=== PATIENT | male | born 1955 | race Caucasian/White ===

== ENCOUNTER 2018-08-09 10:58 | Inpatient (IN) ==
[2018-08-09] MEDS ORDERED: *HR* Ticagrelor 90 MG TABLET PO ONE (11:04)
[2018-08-09] MEDS ORDERED: *HR* Heparin 5,000 UNIT/ML VIAL IVP ONE (11:07)
[2018-08-09] MEDS ORDERED: *HR* Heparin 5,000 UNIT/ML VIAL IVP PRN ×2 (11:07)
[2018-08-09] MEDS ORDERED: Heparin 25,000 UNIT/500 ML D5W 25,000 UNIT/500 ML BAG IVC SCH (11:15)
[2018-08-09] MEDS ORDERED: 0.9 % Sodium Chloride 1,000 ML ONE ×4 (11:15→16:34)
[2018-08-09 11:20] VITALS: BP 83/73
[2018-08-09 11:20] LABS: Basophils % 0.2 %; Eosinophils # 0.1 K/mcL (0.0-0.6); Eosinophils % 0.8 %; Hemoglobin 14.5 g/dL (12.9-16.9); Immature Granulocytes % 0.3 % (0-4); Lymphocytes # 2.2 K/mcL (0.6-4.6); Lymphocytes % 24.8 %; Mean Corpuscular Volume 94.2 fL (83.0-100.0); Mean Platelet Volume 9.5 fL (9.4-12.4); Monocytes # 0.7 K/mcL (0.0-1.3); Monocytes % 7.9 %; Neutrophils # 5.8 K/mcL (1.6-8.9); Platelet Count 248 K/mcL (140-400); Red Blood Count 4.67 M/mcL (4.19-5.50); Red Cell Distribution Width 13.3 % (11.5-14.5)
--- NOTE | 2018-08-09 11:25 | Emergency Department Note ---
Disposition Clinical Impression: STEMI (ST elevation myocardial infarction) Qualifiers: Involved coronary artery: unspecified coronary artery Qualified Code(s): I21.3 - ST elevation (STEMI) myocardial infarction of unspecified site Disposition: Admitted As Inpatient Condition: Critical Chest Pain HPI - General Chief Complaint: ED Chest Pain Stated Complaint: dizziness/CP Time Seen by Provider: 08/09/18 11:04 Source: patient, EMS Vital Signs Reviewed: Yes Nursing Notes Reviewed: Yes - History of Present Illness HPI Narrative: The patient is a 63-year-old otherwise healthy male who presents the emergency department via EMS with concern for STEMI. Patient has been feeling well as of late but today had an episode while he was walking at work and felt lightheaded and dizzy and took a seat. Denies hitting his head or losing consciousness. EMS was called where EKG was obtained which revealed ST elevations in leads 2, 3, and aVF. The patient denies any current symptoms other than lightheadedness. He denies any chest pain, back pain, shortness of breath, nausea, vomiting, diarrhea, rectal bleeding, hematuria, abdominal pain. He states he does not smoke or drink or use recreational drugs. He denies any past history of VT. He takes no daily medications including blood thinners or viagra or other PDE5 inhibitors. Severity scale (1-10): 0 - Related Data Allergies Allergy/AdvReac Type Severity Reaction Status Date / Time No Known Allergies Allergy Verified 08/09/18 11:07 All systems ED: reviewed and negative except as stated. Review of Systems: As Per HPI Constitutional: Denies: fever, chills, weakness, weight change Cardiovascular: Denies: chest pain, palpitations, dyspnea on exertion, edema, syncope Respiratory: Denies: cough, dyspnea, wheezes, hemoptysis, stridor Gastrointestinal: Denies: abdominal pain, nausea, vomiting, diarrhea, constipation, hematemesis, melena, hematochezia Genitourinary: Denies: urgency, dysuria, frequency, hematuria Musculoskeletal: Denies: back pain, neck pain, arthralgia, myalgia Neurological: Reports: other (Lightheadedness). Denies: headache, weakness, numbness, paresthesias, confusion Psychiatric: Denies: anxiety, depression Hematological/Lymphatic: Denies: easy bleeding, easy bruising Chest Pain PMH - Past Medical History Medical history: Reports: no medical history Psychiatric history: Reports: no psych history - Social History Smoking Status: Never smoker Alcohol use: Reports: none Drug use: Reports: none Physical Exam - General Limitations: no limitations General appearance: alert, in no apparent distress - Head Head exam: atraumatic, normocephalic - Eye Eye exam: Present: normal appearance. Absent: scleral icterus - ENT ENT exam: normal exam - Neck Neck exam: Present: normal inspection, full ROM, trachea midline. Absent: tenderness, meningismus - Chest Chest inspection: Present: normal inspection, symmetric chest wall rise - Respiratory Respiratory exam: Present: normal lung sounds bilaterally. Absent: respiratory distress, wheezes, stridor, accessory muscle use, prolonged expiratory phase - Cardiovascular Cardiovascular exam: Present: regular rate, normal rhythm, normal heart sounds. Absent: bradycardia, systolic murmur - Abdominal Exam Abdominal exam: Present: soft, Non-Tender. Absent: tenderness, distention, guarding, rebound, rigidity - Extremities Exam Extremities exam: Present: normal inspection. Absent: pedal edema - Neurological Exam Neurological exam: Present: alert, oriented X3 - Psychiatric Psychiatric exam: Present: normal affect, normal mood - Skin Skin exam: Present: warm, dry, intact. Absent: diaphoresis, mottled Course - Reevaluation(s) Reevaluation #1: Dr. Ocampo, drawer in stitch bonding machine discussed case with Dr. Tijerina, who will take the patient to the laboratory operations coordinator Time: 11:18 Vital Signs Temperature 0 F L 08/09/18 11:02 Pulse Rate 74 08/09/18 11:02 Respiratory Rate 22 08/09/18 11:02 Blood Pressure 92/76 08/09/18 11:02 O2 Sat by Pulse Oximetry 100 08/09/18 11:02 Temperature 0 F L 08/09/18 11:02 Pulse Rate 74 08/09/18 11:19 Respiratory Rate 16 08/09/18 11:19 Blood Pressure 83/73 08/09/18 11:19 O2 Sat by Pulse Oximetry 100 08/09/18 11:19 Oxygen Delivery Oxygen Delivery Room Air Chest Pain - MDM Narrative Medical decision making narrative: Patient with ST elevations in II, III, and aVF per EKG from EMS. STEMI alert initiated prior to arrival. Repeat EKG on presentation consistent with inferior VT. On arrival the patient's blood pressure is 66 with fluids running. Obtained another IV on the left arm to initiate 2 L fluid bolus. ASA 325 was g iven prior to arrival by EMS, no nitro given. Patient at this time is only complaining of lightheadedness. Given his atypical story there is concern for alternative causes of ST elevation including aortic dissection versus pericarditis vs electrolyte abnormality. The patient denies any current symptoms and has been in good health recently. Bedside ultrasound reveals possible motion artifact but no evidence of pericardial effusion. Portable chest x-ray appears within normal limits shows no mediastinal widening, pneumothorax or cardiomegaly. Continue with fluid bolus and initiated dopamine bolus as well. Brilinta given per cardiology recommendations. 4000U Heparin given. Patient taken to laboratory operations coordinator in stable but critical condition. All questions answered. - Medical Records Medical records reviewed: Yes I reviewed the patient's medical records. - Radiology Data Radiology results reviewed: Yes I reviewed the patient's radiology results. Chest X-Ray 08/09/18 11:05 IMPRESSION: No acute cardiopulmonary disease D/ / Jaquan Santiago MD / Jaquan Santiago MD Interpreting Provider: Jaquan Santiago MD - EKG Data EKG attestation: Yes I reviewed and interpreted this EKG. EKG results narrative: EKG from squad at [address]ations in 2, 3, and aVF with reciprocal changes in 1, aVL, V3 and V4. Repeat upon arrival at [address] elevations in 2, 3, and aVF. Cervical changes with ST depression in V2, V3, and V4. ST segment elevation in: II, III, aVF Heart Score - Score History: Slightly Suspicious EKG: Significant ST-Depression Age: 45-65 Risk Factors: No risk factors known
[2018-08-09 11:29] LABS: INR 1.2; Prothrombin Time 13.6 Seconds (9.4-12.1)
--- NOTE | 2018-08-09 11:36 | Cardiology History & Physical ---
Addendum entered and electronically signed by Claudia Ocampo MD 08/09/18 16:04: I have personally performed a face to face evaluation on this patient. I have reviewed and agree with the care plan. History and Exam by me shows: Pt presents with acute inferior-posterior STEMI. Will take emergently to cardiac catheterization lab for LHC and probable PCI. Further recommendations pending clinical course. Original Note: Date of Encounter: 08/09/18 Time of Encounter: 11:00 Assessment and Plan (1) STEMI (ST elevation myocardial infarction) Status: Acute Patient presented to the ED after syncopal episode this morning while walking. ECG shows acute inferior STEMI. Emergent LHC with possible PCI--pt. agreeable to proceed. ASA, brilinta load in ED; started on IV heparin gtt. Hypotensive in ED with SBP 60s, started on dopamine gtt. Will need ICU monitoring s/p LHC. Obtain TTE. Cardiac rehab. Further recommendations to follow Qualifiers: Involved coronary artery: unspecified coronary artery Qualified Code(s): I21.3 - ST elevation (STEMI) myocardial infarction of unspecified site History of Present Illness Chief complaint: Syncope HPI: Mr. Malhotra is a 63 year old male with no significant past medical history who presented to the ED this morning after syncopal episode while walking. ECG obtained by EMS demonstrated acute STEMI; patient was brought to [facility] for further evaluation and need for emergent LHC. Patient denies chest pain/discomfort; only complaint is dizziness. Denies previous medical history or hx of major surgical procedures. Reports was in normal state of health until symptoms started yesterday morning. Recommend emergent LHC with possible PCI. The patient was discussed and reviewed with Dr. Claudia Ocampo. Past Med Surg Social Fam HX - Past Medical History Source: unable to obtain (patient is critically ill) Medical history: no medical history Psychiatric history: no psych history - Past Surgical History Surgical History: non-contributory - Social History Smoking Status: Never smoker Smokeless Tobacco Status: No Alcohol use: none Drug use: none - Family History Mother Living Status: Unknown Hx Family Cardiac Disorders: Yes (CHF) Father History Unknown: Yes Medications and Allergies Allergy/AdvReac Type Severity Reaction Status Date / Time No Known Allergies Allergy Verified 08/09/18 11:07 ROS unobtainable: other (patient is critcially ill; as per HPI) All Systems Review: The remainder of the systems were reviewed and are negative Physical Examination Vital Signs, Last 4 Hours Temp Pulse Resp BP Pulse Ox 08/09/18 11:19 74 16 83/73 100 08/09/18 11:13 74 18 92/63 100 08/09/18 11:02 0 F L 74 22 92/76 100 General: Conversant, Other (appears critically ill; pale) HEENT: Atraumatic, Normocephaly Cardiac: Other (bradycardiac) Lungs: Other (unable to assess; required emergent C) Neuro: Alert and responsive, No focal deficits noted Abdomen: Soft Extremities: No Edema, Normal Pulses Results 08/09/18 11:11 Lab Results 08/09/18 11:11 WBC 8.9 Hgb 14.5 Hct 44.0 Plt Count 248 Active Medications Heparin Sodium (Porcine) (Heparin) 4,000 unit 60 unit/kg (4000 unit) IVP Q6HR PRN PRN Reason: SEE COMMENTS Stop: 02/08/19 11:08 Heparin Sodium (Porcine) (Heparin) 2,000 unit 30 unit/kg (2000 unit) IVP Q6H PRN PRN Reason: SEE COMMENTS Stop: 02/08/19 11:08 Dopamine HCl/Dextrose (Dopamine Premix 400mg/250ml) 400 mg in 250 mls @ 12.587 mls/hr IVC .[id number] [facility] Stop: 02/08/19 11:16 Last Admin: 08/09/18 11:17 Dose: 5 mcg/kg/min, 12.587 mls/hr Heparin Sodium/Dextrose (Heparin 25,000 Unit/500 Ml D5w) 25,000 unit in 500 mls @ 16.112 mls/hr IVC .Q24H [facility]; Protocol Stop: 02/08/19 11:16 - Imaging and Cardiology Echo: pending Cardiac cath: pending - EKG Interpretation EKG results cardiology: personally reviewed
[2018-08-09 11:44] LABS: BUN/Creatinine Ratio 26 (6-26); Blood Urea Nitrogen 24 mg/dL (8-23); Calcium 8.1 mg/dL (8.6-10.3); Carbon Dioxide 24 mEq/L (23-29); Chloride 105 mEq/L (98-107); Glucose 147 mg/dL (70-105); Osmolality,Calculated 295 (280-300); Potassium 4.1 mEq/L (3.5-5.1); Sodium 139 mEq/L (136-145); eGFR For Non-African Americans > 60 (> 60)
[2018-08-09] MEDS ORDERED: FentaNYL (PF) 1,000 MCG in 0.9 % Sodium Chloride 80 ML IVC SCH (12:00)
[2018-08-09 12:05] LABS: ABG Base Excess -9 mEq/L (-2 to 3); ABG HCO3 18 mEq/L (21-27); ABG Oxygen Saturation 100 % (95-98); ABG PCO2 43 mmHg (35-45); ABG PH 7.23 pH Units (7.32-7.45); ABG PO2 327 mmHg (85-104); ABG TCO2 19 mEq/L (20-26); Blood Gas PEEP 10 cm H2O
--- NOTE | 2018-08-09 12:11 | Emergency Department Note ---
Disposition Clinical Impression: STEMI (ST elevation myocardial infarction) Qualifiers: Involved coronary artery: unspecified coronary artery Qualified Code(s): I21.3 - ST elevation (STEMI) myocardial infarction of unspecified site Disposition: Admitted As Inpatient Condition: Serious Forms: ED Satisfaction Letter General Adult HPI - General Chief complaint: ED Chest Pain Stated complaint: dizziness/CP Time Seen by Provider: 08/09/18 11:04 Source: patient, EMS Limitations: no limitations Nursing Notes Reviewed: Yes Vital Signs Reviewed: Yes - History of Present Illness Pain Scale: 0 - Related Data Allergies Allergy/AdvReac Type Severity Reaction Status Date / Time No Known Allergies Allergy Verified 08/09/18 11:07 Constitutional: Denies: fever, chills, weakness, weight change Cardiovascular: Denies: chest pain, palpitations, dyspnea on exertion, edema, syncope Respiratory: Denies: cough, dyspnea, wheezes, hemoptysis, stridor Gastrointestinal: Denies: abdominal pain, nausea, vomiting, diarrhea, cons tipation, hematemesis, melena, hematochezia Genitourinary: Denies: urgency, dysuria, frequency, hematuria Musculoskeletal: Denies: back pain, neck pain, arthralgia, myalgia Neurological: Reports: other (Lightheadedness). Denies: headache, weakness, numbness, paresthesias, confusion Psychiatric: Denies: anxiety, depression Hematological/Lymphatic: Denies: easy bleeding, easy bruising Past Medical History - Past Medical History Medical history: Reports: no medical history Psychiatric history: Reports: no psych history - Social History Smoking Status: Never smoker Smokeless Tobacco Status: No Alcohol use: Reports: none Drug use: Reports: none Physical Exam - General Limitations: no limitations General appearance: alert, in no apparent distress Course Vital Signs Temperature 0 F L 08/09/18 11:02 Pulse Rate 74 08/09/18 11:02 Respiratory Rate 22 08/09/18 11:02 Blood Pressure 92/76 08/09/18 11:02 O2 Sat by Pulse Oximetry 100 08/09/18 11:02 Temperature 0 F L 08/09/18 11:02 Pulse Rate 74 08/09/18 11:19 Respiratory Rate 16 08/09/18 11:19 Blood Pressure 83/73 08/09/18 11:19 O2 Sat by Pulse Oximetry 100 08/09/18 11:19 Oxygen Delivery Oxygen Delivery Room Air Medical Decision Making - Lab Data Result diagrams: 08/09/18 11:11 Lab Results 08/09/18 Range/Units 11:11 WBC 8.9 (4.3-11.1) K/mcL RBC 4.67 (4.19-5.50) M/mcL Hgb 14.5 (12.9-16.9) g/dL Hct 44.0 (37.5-50.1) % MCV 94.2 (83.0-100.0) fL MCH 31.0 (28.0-33.3) pg MCHC 33.0 (31.6-35.5) g/dL RDW 13.3 (11.5-14.5) % Plt Count 248 (140-400) K/mcL MPV 9.5 (9.4-12.4) fL Immature Gran % 0.3 (0-4) % Seg Neutrophils % 66.0 % Lymphocytes % 24.8 % Monocytes % 7.9 % Eosinophils % 0.8 % Basophils % 0.2 % Neutrophils # 5.8 (1.6-8.9) K/mcL Lymphocytes # 2.2 (0.6-4.6) K/mcL Monocytes # 0.7 (0.0-1.3) K/mcL Eosinophils # 0.1 (0.0-0.6) K/mcL Basophils # 0.0 (0.0-0.2) K/mcL Attestation Statement - Attestation Attestation: Attestation: Resident Attestation: I examined this patient and my medical decision making was reviewed with the Resident Physician. I agree with the documented findings, disposition and treatment plan as described except to the extent set forth below. We independently had [id number] contact with the patient. Resident physician Dr. Shea and Dr. Grey. Transmitted EKG was available prior to squad arrival. [facility] was activated secondary to significant elevations in the inferior leads as well as associated anterior and laterally depression. Upon arrival the patient arrives in what appears to be no significant distress. He is resting in bed answering questions properly. He is complaining of dizziness and had 2 prior syncopal events. EMS report was taken. They state that he had a syncopal event and did not look well. EKG had been performed and noted to have changes concerning for CO and was transmitted. On arrival the patient did have hypotension that was treated with IV fluids. Blood sugar was found to be not hypoglycemic. The patient received a second liter of fluids. [facility] team did arrive to transport the patient. Interventional cardiology, Dr. Ocampo, did call to discuss the case and recommended [place] type. She had already seen the EKG and is coordinating [facility]. A third liter of fluids was started within the emergency department as well as dopamine. Berlinta was given prior to transfer. Family was not available within the emergency department. Staff has been notified to escort them to cardiopulmonary desk when they arrive so they can be updated with results in status. Patient column, flat affect, no acute distress, regular rate and rhythm, clear to auscultation bilaterally, abdomen soft nontender palpation, no significant peripheral pitting edema. Patient denies headache or abdominal pain or bloody bowel movements. Patient states that yesterday he felt completely fine. Patient felt completely fine prior to syncopal event. Ultrasound shows mildly decreased ejection fraction. Chest x-ray does not acute abnormality.
[2018-08-09 12:26] LABS: ABG Base Excess -12 mEq/L (-2 to 3); ABG HCO3 19 mEq/L (21-27); ABG Oxygen Saturation 81 % (95-98); ABG PCO2 67 mmHg (35-45); ABG PH 7.07 pH Units (7.32-7.45); ABG PO2 64 mmHg (85-104); ABG TCO2 21 mEq/L (20-26); Blood Gas Modality VC; Blood Gas PEEP 5 cm H2O; Blood Gas Respiration Rate 14; Blood Gas VT 500 cc
[2018-08-09] MEDS ORDERED: Heparin 1,000 UNITS/500 mL 0 ML ONE (13:06)
[2018-08-09] MEDS ORDERED: Amiodarone Premix 360 MG/200 ML BAG IVC ONE (13:13)
[2018-08-09] MEDS ORDERED: Nitroglycerin 1,000 MCG/10 ML VIAL IV ONE (13:15)
[2018-08-09] MEDS ORDERED: Sodium Bicarbonate 150 MEQ in D5% in Water 1,000 ML IVC SCH (13:15)
[2018-08-09] MEDS ORDERED: ISOVUE-370 200 ML INFUS..BTL ONE ×2 (13:20→15:45)
[2018-08-09] MEDS ORDERED: *HR* Phenylephrine 10 MG/ML VIAL ONE ×2 (13:25→15:18)
[2018-08-09] MEDS ORDERED: 0.9 % Sodium Chloride 250 ML ONE ×2 (13:25→15:18)
[2018-08-09 13:30] LABS: ABG Base Excess -11 mEq/L (-2 to 3); ABG HCO3 21 mEq/L (21-27); ABG Oxygen Saturation 80 % (95-98); ABG PCO2 81 mmHg (35-45); ABG PH 7.03 pH Units (7.32-7.45); ABG PO2 66 mmHg (85-104); ABG TCO2 24 mEq/L (20-26); Blood Gas PEEP 10 cm H2O; Blood Gas Respiration Rate 18; Blood Gas VT 500 cc
[2018-08-09] MEDS ORDERED: *HR* Heparin 10,000 UNIT/10 ML VIAL ONE ×2 (13:54→15:45)
[2018-08-09 14:19] LABS: ABG Base Excess -10 mEq/L (-2 to 3); ABG HCO3 22 mEq/L (21-27); ABG Oxygen Saturation 66 % (95-98); ABG PCO2 78 mmHg (35-45); ABG PH 7.05 pH Units (7.32-7.45); ABG PO2 50 mmHg (85-104); ABG TCO2 24 mEq/L (20-26); Blood Gas Modality ASSIST CONTROL; Blood Gas PEEP 10 cm H2O; Blood Gas Respiration Rate 20; Blood Gas VT 550 cc
[2018-08-09 15:08] LABS: ABG Base Excess -6 mEq/L (-2 to 3); ABG HCO3 24 mEq/L (21-27); ABG Oxygen Saturation 76 % (95-98); ABG PCO2 70 mmHg (35-45); ABG PH 7.15 pH Units (7.32-7.45); ABG PO2 54 mmHg (85-104); ABG TCO2 26 mEq/L (20-26); Blood Gas Modality ASSIST CONTROL; Blood Gas PEEP 10 cm H2O; Blood Gas Respiration Rate 20; Blood Gas VT 550 cc
--- NOTE | 2018-08-09 15:13 | Pulmonology Consult Note ---
<Alana Perla R - Last Filed: 08/09/18 17:02> Date of Encounter: 08/09/18 Time of Encounter: 15:13 Assessment and Plan (1) STEMI (ST elevation myocardial infarction) Current Visit: Yes Status: Acute Patient presented to the ED after syncopal episode this morning while walking. ECG shows acute inferior STEMI Initial trop in ED 4.40 ASA, brilinta load in ED; started on IV heparin gtt. Hypotensive in ED with SBP 60s, started on dopamine, neosynephrine gtt - DC'd Emergent LHC with PCI - complicated by pt coding during procedure x2, now on Impella [place] Uriel catheter in place, pt intubated Left femoral central line, left arterial sheath in place Currently on bicarb, amio and vasopressin ggt Fentanyl and versed for sedation Bicarb ggt switched to bicarb pushes Paralyzed with Vecuronium push and ggt Plan is to transfer to [place] as soon as pt is stable and there is an accepting physician Primary care as directed by Cardiology Pt began having bloody output in ETT, dove, and oozing from peripheral sites Stat CBC, Coags, T&S ordered Vecuronium, Levophed and Epi drips ordered for transfer to [place] Repeat ABGs remain acidotic but improving at 7.21 with CO2 56 and O2 58 - mixed respiratory and metabolic acidosis CXR shows new bilateral consolidations concerning for pulmonary hemorrhage Blood bank called for potential massive transfusion protocol Pt transported to [place] via [facility] for further care Qualifiers: Involved coronary artery: unspecified coronary artery Qualified Code(s): I21.3 - ST elevation (STEMI) myocardial infarction of unspecified site (2) Acidosis Current Visit: Yes Status: Acute Pt initially had pH of 7.23, which dropped as low as 7.03 Post intubaion this has improved to 7.15 Continue to trend while here and manage vent settings (3) DVT prophylaxis Current Visit: Yes Status: Acute On Heparin ggt History of Present Illness Consult date: 08/09/18 Requesting physician: Claudia Ocampo Reason for consult: other (intubated post-cath for STEMI) Chief complaint: syncope History of present illness: Mr. Malhotra is a 63 yo male with no PMHx who presented to the ED today after a syncopal episode. He had an episode of dizziness while walking today but has not had any chest pain, shortness of breath, or other cardiac symptoms in the past. No Hx of cardiac disease in himself and only known heart disease was CHF in his mother. EMS was called after his syncopal episode and during transport they performed an EKG that showed an inferior wall STEMI. The pt went to the lab clerk shortly after arrival o the ED and subsequently coded twice. The patient is now intubated and awaiting transfer to [place] as he is on Impella. 1525 - Upon arrival to the ICU the pt had bloody output from ETT, dove and NG tubes. Stat CBC, coags, and T&S ordered. Blood bank called for potential massive transfusion protocol. PT on Levophed and vasopressin for BP, epi ordered for transfer to [place]. Will switch bicarb drip to bicarb pushes. Pt also on amio, fentanyl and versed. Paralyzed with vecuronium drip. CXr ordered. Repeat ABGs q30min. 1638 - [facility] ETA 10 min 1652 - [facility] arrived, preparing for pt transfer at this time. Past Med Surg Social Fam HX - Past Medical History Medical history: no medical history Psychiatric history: no psych history - Past Surgical History Surgical History: non-contributory - Social History Smoking Status: Never smoker Smokeless Tobacco Status: No Alcohol use: none Drug use: none - Family History Mother Living Status: Unknown Hx Family Cardiac Disorders: Yes (CHF) Father History Unknown: Yes Medications and Allergies Allergy/AdvReac Type Severity Reaction Status Date / Time No Known Allergies Allergy Verified 08/09/18 11:07 ROS unobtainable: due to endotracheal tube All Systems: The remainder of the systems were reviewed and are negative Physical Examination Vital Signs: Vital Signs, Last 4 Hours Pulse Resp BP Pulse Ox 08/09/18 12:00 17 83 08/09/18 11:19 74 16 83/73 100 08/09/18 11:13 74 18 92/63 100 General appearance: asleep, other Eyes: nonicteric ENT: oropharynx dry Neck: supple Effort: normal Auscultation: bilateral: clear Cardiovascular: regular rate and rhythm Gastrointestinal: soft, non-tender, non-distended Integumentary: normal Extremities: no cyanosis, no edema unable to assess due to mental status, other (paralyzed) Ventilator Settings Ventilator Settings: Ventilator Settings, Last 8 Hours Ventilator Tidal Volume 550 Setting Ventilator Tidal Volume 550 Setting Ventilator Tidal Volume 500 Setting Ventilator Tidal Volume 500 Setting Ventilator Respiratory Rate 20 Setting Ventilator Respiratory Rate 20 Setting Ventilator Respiratory Rate 14 Setting Ventilator Respiratory Rate 14 Setting Actual Respiratory Rate 17 Positive End Expiratory 10 Pressure Positive End Expiratory 10 Pressure Positive End Expiratory 5 Pressure Positive End Expiratory 10 Pressure Positive End Expiratory 10 Pressure Peak Inspiratory Airway 17 Pressure Results - Laboratory Findings CBC and BMP: 08/09/18 15:37 08/09/18 11:11 ABG ABG pH 7.05 pH Units (7.32-7.45) L* 08/09/18 14:12 ABG pCO2 78 mmHg (35-45) H* 08/09/18 14:12 ABG pO2 50 mmHg (85-104) L* 08/09/18 14:12 ABG O2 Saturation 66 % (95-98) L 08/09/18 14:12 PT/INR, D-dimer PT 13.6 Seconds (9.4-12.1) H 08/09/18 11:11 Abnormal lab findings: Abnormal lab results PT 13.6 Seconds (9.4-12.1) H 08/09/18 11:11 Heparin Anti-Xa, Unfract 0.02 IU/mL (0.30-0.70) L 08/09/18 11:11 ABG pH 7.05 pH Units (7.32-7.45) L* 08/09/18 14:12 ABG pCO2 78 mmHg (35-45) H* 08/09/18 14:12 ABG pO2 50 mmHg (85-104) L* 08/09/18 14:12 ABG O2 Saturation 66 % (95-98) L 08/09/18 14:12 ABG Base Excess -10 mEq/L (-2 to 3) L 08/09/18 14:12 BUN 24 mg/dL (8-23) H 08/09/18 11:11 Glucose 147 mg/dL (70-105) H 08/09/18 11:11 Calcium 8.1 mg/dL (8.6-10.3) L 08/09/18 11:11 Troponin I 4.40 ng/mL (< 0.04) H* 08/09/18 11:11 - Clinical Findings Intake & Output: Intake & Output 1108/09/18 08/09/18 23:59 07:59 15:59 Weight 67.132 kg Consult Discharge Plan - Plan Referrals: NONE,PCP [Primary Care Provider] - <Maverick Rinaldi - Last Filed: 08/09/18 17:15> Date of Encounter: 08/09/18 All Systems: The remainder of the systems were reviewed and are negative Ventilator Settings Ventilator Settings: Ventilator Settings, Last 8 Hours Ventilator Tidal Volume 550 Setting Ventilator Tidal Volume 550 Setting Ventilator Tidal Volume 500 Setting Ventilator Tidal Volume 500 Setting Ventilator Respiratory Rate 20 Setting Ventilator Respiratory Rate 20 Setting Ventilator Respiratory Rate 14 Setting Ventilator Respiratory Rate 14 Setting Actual Respiratory Rate 17 Positive End Expiratory 10 Pressure Positive End Expiratory 10 Pressure Positive End Expiratory 5 Pressure Positive End Expiratory 10 Pressure Positive End Expiratory 10 Pressure Peak Inspiratory Airway 17 Pressure Results - Laboratory Findings CBC and BMP: 08/09/18 15:37 08/09/18 11:11 ABG ABG pH 7.21 pH Units (7.32-7.45) L 08/09/18 16:23 ABG pCO2 56 mmHg (35-45) H 08/09/18 16:23 ABG pO2 58 mmHg (85-104) L 08/09/18 16:23 ABG O2 Saturation 83 % (95-98) L 08/09/18 16:23 PT/INR, D-dimer PT 17.0 Seconds (9.4-12.1) H 08/09/18 15:37 Abnormal lab findings: Abnormal lab results WBC 17.1 K/mcL (4.3-11.1) H D 08/09/18 15:37 RBC 4.00 M/mcL (4.19-5.50) L 08/09/18 15:37 Hgb 12.7 g/dL (12.9-16.9) L D 08/09/18 15:37 Neutrophils # 12.7 K/mcL (1.6-8.9) H 08/09/18 15:37 Nucleated RBCs/100 WBC 0.2 /100 WBC (0) H 08/09/18 15:37 PT 17.0 Seconds (9.4-12.1) H 08/09/18 15:37 APTT 155.7 Seconds (26.0-36.0) H* D 08/09/18 15:37 Heparin Anti-Xa, Unfract 0.75 IU/mL (0.30-0.70) H 08/09/18 15:37 ABG pH 7.21 pH Units (7.32-7.45) L 08/09/18 16:23 ABG pCO2 56 mmHg (35-45) H 08/09/18 16:23 ABG pO2 58 mmHg (85-104) L 08/09/18 16:23 ABG O2 Saturation 83 % (95-98) L 08/09/18 16:23 ABG Base Excess -7 mEq/L (-2 to 3) L 08/09/18 16:23 BUN 24 mg/dL (8-23) H 08/09/18 11:11 Glucose 147 mg/dL (70-105) H 08/09/18 11:11 Calcium 8.1 mg/dL (8.6-10.3) L 08/09/18 11:11 Troponin I 4.40 ng/mL (< 0.04) H* 08/09/18 11:11 - Clinical Findings Intake & Output: Intake & Output 08/09/18 08/09/18 08/09/18 07:59 15:59 23:59 Weight 67.132 kg - Attending Attestation I examined this patient and my medical decision-making was reviewed with the Resident Physician. I agree with the documented findings, disposition and treatment plan as described except to the extent set forth below. We independently had [id number] contact with the patient I spent 58min of Critical Care time with this patient. It involved decision making of high complexity to assess, manipulate, and support vital organ system failure and/or to prevent further life threatening deterioration of the patient's condition. The time involved in the performance of separately reportable procedures was not counted toward critical care time. Patient seen and examined at bedside Labs, radiology, chart personally reviewed. Management was reviewed during multidisciplinary critical care rounds. DYE WORKER: Intubated and sedated suspected anoxic injury but extent cannot be confirmed at this time Pulm: Acute hypoxic hypercapnic respiratory failure with severe refractory hypoxemia intubated on present with a difficulty with gas exchange plan for deep sedation and paralysis size judiciously increased his PEEP has of underlying cardiac dysfunction we will attempt to lower tidal volume and increase respiratory rate to improve minute ventilation. Hypoxemia is a manifestation of suspected cardiogenic pulmonary edema and likely pulmonary hemorrhage from trauma. Cards: Status post cardiac arrest 2 with Cardiogenic shock from acute STEMI full impella support at this time patient being transitioned to Levophed for vasopressor support further management per cardiology likely will need transferred to referral center GI: Ppi prophylaxis given Nutrition: And by mouth for now Renal: Mixed acidosis likely component of lactic acidosis and STEVE.. UOP Monitored, Cont to Trend sCr and monitor Electrolytes. ID: No clear infectious etiology Heme/Onc: Patient showing evidence of hemorrhage and suspected early DIC H&H is stable from admission transfuse to keep hemoglobin around 9-10 with acute ischemia. Suspected pulmonary hemorrhage from trauma which fortunately has not persisted. Active bleeding is likely worsened by ongoing coagulopathy to support Impella Endo: Glucose Monitored Integ/MSK: Skin Care per routine ICU Nursing Protocol to prevent ulcers. Lines: All lines examined without evidence of infection : Dispo: Planned transfer patient [facility] CODE: Full code son updated at bedside. Prognosis poor.
[2018-08-09] MEDS ORDERED: Heparin 1,000 UNITS/500 mL 500 ML ONE ×2 (15:44→15:56)
[2018-08-09 15:45] LABS: Hematocrit 40.2 % (37.5-50.1)
[2018-08-09] MEDS ORDERED: Norepinephrine 4 MG in D5% in Water 250 ML IVC SCH (15:45)
[2018-08-09] MEDS ORDERED: EPINEPHrine 1 MG in D5% in Water 250 ML IVC SCH (15:45)
[2018-08-09 15:48] LABS: Hemoglobin 12.7 g/dL (12.9-16.9)
[2018-08-09 15:51] LABS: ABG Base Excess -6 mEq/L (-2 to 3); ABG HCO3 24 mEq/L (21-27); ABG Oxygen Saturation 82 % (95-98); ABG PCO2 66 mmHg (35-45); ABG PH 7.17 pH Units (7.32-7.45); ABG PO2 60 mmHg (85-104); ABG TCO2 26 mEq/L (20-26); Blood Gas Modality ASSIST CONTROL; Blood Gas PEEP 10 cm H2O; Blood Gas Respiration Rate 18; Blood Gas VT 550 cc
[2018-08-09] MEDS ORDERED: *HR* Vecuronium 10 MG VIAL ONE (15:52)
[2018-08-09 15:55] LABS: INR 1.5
[2018-08-09] MEDS ORDERED: Vecuronium 50 MG in 0.9 % Sodium Chloride 200 ML IVC SCH (16:00)
[2018-08-09] MEDS ORDERED: D5% in Water 250 ML ONE (16:14)
[2018-08-09 16:27] LABS: Heparin anti-factor XA UFH 0.75 IU/mL (0.30-0.70)
[2018-08-09 16:28] LABS: Activated Partial Thrombo Time 155.7 Seconds (26.0-36.0)
[2018-08-09 16:31] LABS: ABG Base Excess -7 mEq/L (-2 to 3); ABG HCO3 22 mEq/L (21-27); ABG Oxygen Saturation 83 % (95-98); ABG PCO2 56 mmHg (35-45); ABG PH 7.21 pH Units (7.32-7.45); ABG PO2 58 mmHg (85-104); ABG TCO2 24 mEq/L (20-26); Blood Gas Modality ASSIST CONTROL; Blood Gas PEEP 10 cm H2O; Blood Gas Respiration Rate 26; Blood Gas VT 520 cc
[2018-08-09 16:42] LABS: Basophils % 0.2 %; Eosinophils % 0.2 %; Immature Granulocytes % 2.7 % (0-4); Lymphocytes # 2.8 K/mcL (0.6-4.6); Lymphocytes % 16.6 %; Mean Corpuscular HGB Conc 32.2 g/dL (31.6-35.5); Mean Corpuscular Volume 99.5 fL (83.0-100.0); Monocytes % 6.1 %; Neutrophils # 12.7 K/mcL (1.6-8.9); Nucleated Red Blood Cells 0.2 /100 WBC (0); Platelet Count 310 K/mcL (140-400); Red Cell Distribution Width 13.6 % (11.5-14.5); Segmented Neutrophils % 74.2 %
--- NOTE | 2018-08-09 16:48 | Event Note ---
Date of Encounter: 08/09/18 Time of Encounter: 16:00 - Cardiology Event Note Pt critically ill on arrive to catheterization lab in cardiogenic shock with pressors. Cardiac catheterization revealed severe 3VCAD with severe diffuse disease of LAD, BLOCKER AND SEWER of Cx, and 100% acute thrombosis of dominant RCA. Pt intub ated for respiratory arrest and then subsequently developed PEA. Received multiple rounds of ACS. Impella catheter placed for hemodynamic support/cardiogenic shock. Had successful PCI of RCA with multiple TIM. Had successful PCI of LAD with multiple TIM. CVC placed for IV medication administration. [place]-Uriel catheter placed to monitor hemodynamics- difficulty oxygenating patient despite 100% FiO2, PEEP 10. Fluoroscopy performed to ensure proper ETT placement. Pt left catheterization lab critically ill on maximum support. Discussed all of above with patient's son- pt's son is aware pt is critically ill. Also discussed transfer to [facility] for higher level of care. Son agreeable.
[2018-08-09] MEDS ORDERED: Phenylephrine 10 MG in D5% in Water 250 ML IVC SCH (17:00)
[2018-08-09] MEDS ORDERED: *HR* Etomidate 40 MG/20 ML VIAL IVP ONE (17:59)
--- NOTE | 2018-08-10 10:32 | Invasive Diagnostic Lab Proc ---
Name: Newton Malhotra Date of Study: 08/09/2018 Date: 1955 Ht: 66.9in Medical Record#: [id number] Age: 63 Wt: 147.71lb Gender: Male BSA: 1.78 Order #: [id number] BMI: 23.18 Physicians Procedure Physician: Claudia Ocampo MD, [facility] Referring MD: Referring MD: Staff Name Position Time In Ira, Micah FRANCOIS Monitor 11:25 AM Nickie Whittaker RN Assignment Desk Editor 11:25 AM Adam, Isabel RT (R) Scrub 11:25 AM Indications Indication STEMI Procedures Performed Procedure PRQ CARD REVASC AZ 1 VSL R&L HRT ART/VENTRICLE ANGIO Insert VAD artery access CENTRAL LINE PLACEMENT Pre-Procedure Checklist Informed consent is complete signed and on chart. H&P is on chart. ID band is on and ID verified with patient. Patient NPO for procedure The procedure was described for the patient and questions were answered. Blood Pressure: 87/67 ECG is on chart. Rhythm: NSR Plan of Care Patient will tolerate the procedure without complications. Adequate level of comfort will be maintained. Hemodynamics will remain stable Patient will recover from procedure without complications. Respiratory function will be maintained. Cardiac rhythm will remain stable. Patient temperature will be maintained. Patient and/or family have verbalized understanding of the procedure. Patient Education Intravenous Access Time IV Size Location DC'd Fluid/Drip Rate Units RN 18g 1 1/4" Patent On Arrival Rt Nickie Llanes RN 18g 1 1/4" Patent On Arrival Lt Antecubital Nickie Whittaker RN Allergies No Known Allergies Vital Signs Time BP (mmHg) HR (bpm) O2 Sat. RR (bpm) LOC 11:28 AM / % 4 = Oriented but drowsy 11:28 AM / % 1 = Reflexes present/moves spontaneously 11:26 AM 118 / 107 82 99 % 12 11:27 AM 87 / 67 76 99 % 14 11:31 AM 75 / 34 81 99 % 17 11:33 AM 76 / 43 92 90 % 14 11:37 AM 141 / 101 51 82 % 37 11:39 AM 162 / 92 34 77 % 22 11:43 AM 76 / 45 70 100 % 21 01:33 PM 83 / 67 98 40 % 15 02:22 PM 73 / 48 103 40 % 19 02:25 PM 101 / 77 105 33 % 21 Procedural Medications Time Medication Dose Units Method Given By 11:28 AM Dopamine 10 mcg/kg/hr Intravenous 11:28 AM Oxygen 2 L/min nasal cannula Nickie Whittaker RN 11:30 AM Lidocaine 2% 12 ml Subcutaneous Claudia Ocampo MD, FAC 11:31 AM Zofran 4 mg Intravenous Nickie Whittaker RN 11:35 AM Neosynephrine 100 mcg Intravenous Nickie Whittaker RN 11:38 AM Atropine 0.5 mg Intravenous Micah Roth RN 11:40 AM Atropine 0.5 mg Intravenous Micah Roth RN 11:42 AM Neosynephrine 100 mg Intravenous Micah Roth RN 11:42 AM Etomidate 23 mg Intravenous Nickie Whittaker RN 11:44 AM Versed 2 mg Intravenous Nickie Whittaker RN 11:44 AM Fentanyl 50 mcg Intravenous Nickie Whittaker RN 11:47 AM Versed 2 mg Intravenous Nickie Whittaker RN 11:47 AM Fentanyl 50 mcg Intravenous Nickie Whittaker RN 11:48 AM Neosynephrine 100 mg Intravenous Micah Roth RN 11:50 AM Epinephrine 1 mg Intravenous Luke Fung RN 11:51 AM Neosynephrine 100 mcg/min Intravenous Nickie Whittaker RN 11:51 AM Dopamine 15 mcg/kg/min Intravenous Nickie Whittaker RN 12:00 PM Epinephrine 1 mg Intravenous Nickie Whittaker RN 12:00 PM Bicarb 1 Amp Intravenous Micah Roth RN 12:05 PM Heparin 5000 units Intravenous Nickie Whittaker RN 12:11 PM versed 2 mg/hr Intravenous Nickie Whittaker RN 12:14 PM Fentenyl 50 mcg/hr Intravenous Nickie Whittaker RN 12:19 PM Vasopressin 0.04 units/min Intravenous Nickie Whittaker RN 12:26 PM Bicarb 1 Amp Intravenous Micah Roth RN 12:28 PM Versed 2 mg Intravenous IraMicah perez RN 12:30 PM Nitroglycerin 200 mcg Intracoronary Claudia Ocampo MD, FACC 12:49 PM Nitroglycerin 200 mcg Intracoronary Claudia Ocampo MD, FACC 12:49 PM Dopamine 10 mg Intravenous Micah Roth RN 12:59 PM Dopamine 5 mcg/kg/min Intravenous Luke Fung RN 01:01 PM Versed 2 mg Intravenous IraMicah bradford RN 01:01 PM Fentanyl 50 mcg Intravenous Micah Roth RN 01:02 PM Fentanyl 75 mg/hr Intravenous Micah Roth RN 01:02 PM Versed 3 mg/hr Intravenous Micah Roth RN 01:03 PM Amiodarone 150 mg Intravenous Luke Fung RN 01:05 PM Versed 2 mg Intravenous Micah Roth RN 01:05 PM Fentanyl 50 mcg Intravenous Micah Roth RN 01:07 PM Dopamine Dc'd Micah Roth RN 01:14 PM Nitroglycerin 200 mcg Intracoronary Claudia Ocampo MD, FACC 01:17 PM Nitroglycerin 200 mcg Intracoronary Claudia Ocampo MD, FACC 01:20 PM Amiodarone 33.3 ml/hr Intravenous Micah Roth RN 01:27 PM Nitroglycerin 200 mcg Intracoronary Claudia Ocampo MD, FACC 01:47 PM Versed 2 mg Intravenous Micah Roth RN 01:47 PM Fentanyl 50 mcg Intravenous Micah Roth RN 01:50 PM Nitroglycerin 200 mcg Intracoronary Claudia Ocampo MD, FACC 01:54 PM Heparin 2000 units Intravenous Luke Fung RN 02:00 PM Nitroglycerin 200 mcg Intracoronary Claudia Ocampo MD, FACC 02:19 PM 0.9 w/ Sodium Bicarbonate 100 ml/hr Intravenous Luke Fung RN 01:00 PM Vasopressin 0.4 units/min Intravenous Micah Roth RN 11:45 AM Bicarb 1 Amp Intravenous Luke Fung RN ASA Classification: Emergent Procedure: ASA score is assumed Kylie Score Preprocedure Postprocedure Activity 1- Moves 2 extremities sustained head lift Activity Circulation 1- SBP+/= 20 - 50 points of pre-anesthetic level Circulation Consciousness 2- Awake and alert oriented x 3 Consciousness O2 Saturation 1- Needs O2 inhalation to maintain O2 saturation of 90% O2 Saturation Respiratory 1- Labored or limited respiration requires airway Respiratory Total Score 6 Total Score Contrast Agent: Isovue Diagnostic Contrast: 425 ml Total Contrast: 425 ml Fluoro Dose: 41554 mGy Activated Clotting Time Time Seconds to Clot 12:24 PM 378 12:42 PM 12:46 PM 270 01:36 PM 273 01:50 PM 223 Procedure Log Time Note Enter By 11:25 AM Pt arrived to laborer general 2 at 11:25 [place] 11:25 AM Ira, Micah RN Position: Monitor Time in: 11: [place] 11: AM Nickie Whittaker RN Position: Assignment Desk Editor Time in: : [place] 11:25 AM Isabel Medina RT (R) Position: Scrub Time in: : [place] 11:25 AM Patient charges- Angio tray pack, Navilyst 3mm J, Pulse Oximetry and ACIST tubing and transducer [place] 11: AM Physician arrived : [place] 11: AM Meet and genaro completed [place] 11: AM Sign in performed according to hospital policy. Informed consent was obtained. [place] 11: AM Procedure start : [place] 11: AM Vitals capture started with the following parameters, Patient=Adult, Interval=5 min, Initial Cxwvgvjv=827 mmHg, Deflation Rate=5 mmHg, Cuff placed on Right Arm 11: AM CathStat 11: AM HR=82 bpm, FFCE=159/107 mmhg, SpO2=99.0 %, Resp=12 B/min 11: AM NIBP STAT measurement started. 11:27 AM HR=76 bpm, NIBP=87/67 mmhg, SpO2=99.0 %, Resp=14 B/min, Comment=nsr 11: AM Patient arrived at 11:28 with Dopamine Intravenous drip @ 10 mcg/kg/hr [place] 11: AM Time: :28 Patient comfortable and pain free: Yes [place] 11: AM Time: 11:28LOC: 4 = Oriented but drowsy [place] 11: AM Time: 11:28 Oxygen on at 2 L/min per nasal cannula by Nickie Whittaker RN [place] 11:29 AM Clinical Presentation: STEMI or equivalent [place] 11:29 AM Time out was performed according to hospital policy. Conscious sedation and anesthesia was achieved (see medication log with in this report above) [place] 11:29 AM Critical cardiac patient with acute AZ was brought emergently to the cardiac labor and employment paralegal for immediate coronary angiography and intervention if clinically indicated. [place] 11:30 AM Time: 11:30 12 ml Lidocaine 2% to right groin Subcutaneous Given by Claudia Ocampo MD, [facility] [place] 11: AM Time: 11:31 Zofran 4 mg Intravenous Given by Nickie Whittaker RN [place] 11:31 AM HR=81 bpm, NIBP=75/34 mmhg, SpO2=99.0 %, Resp=17 B/min, Comment=nsr 11:32 AM 5Fr FL 4 catheter inserted over the wire DNC [place] 11:33 AM NIBP STAT measurement started. 11:33 AM HR=92 bpm, NIBP=76/43 mmhg, SpO2=90.0 %, Resp=14 B/min 11:34 AM LCA angiography performed in multiple views. [place] 11:35 AM Catheter removed [place] 11:36 AM Time: 11:35 Juan 100 mcg Intravenous Given by Nickie Whittaker RN [place] 11:37 AM HR=51 bpm, WPZB=353/101 mmhg, SpO2=82.0 %, Resp=37 B/min 11:37 AM 5Fr FR 4 catheter inserted over the wire DN [place] 11:37 AM RCA angiography performed in multiple views. [place] 11:38 AM Respiratory called [place] 11:38 AM NIBP STAT measurement started. 11:39 AM ECG Rythm: Sinus Jude dspellman 11:39 AM HR=34 bpm, QUUK=558/92 mmhg, SpO2=77.0 %, Resp=22 B/min, Comment=STEMI 11:40 AM Time: 11:38 Atropine 0.5 mg Intravenous Given by Micah Roth RN [place] 11:41 AM Time: 11:40 Atropine 0.5 mg Intravenous Given by Micah Roth RN [place] 11:42 AM Time: 11:42 Juan 100 mg Intravenous Given by Micah Roth RN [place] 11:42 AM Time: 11:42 Etomidate 23 mg Intravenous Given by Nickie Whittaker RN [place] 11:42 AM Respiratory at head of table to intubate. Pt unresponsive, collier, unable to maintain SAT. [place] 11:42 AM Recorded Pressure: Ao, HR=68, Condition=Condition 1 (Aorta) Ao 80/22/46 11:43 AM HR=70 bpm, NIBP=76/45 mmhg, SdB5=585 %, Resp=21 B/min 11:43 AM Time: 11:28LOC: 1 = Reflexes present/moves spontaneously [place] 11:44 AM Time: 11:28 Patient comfortable and pain free: Yes [place] 11:44 AM Time: 11:44 Versed 2 mg Intravenous Given by Nickie Whittaker RN [place] 11:44 AM Time: : Fentanyl 50 mcg Intravenous Given by Nickie Whittaker RN [place] 11:45 AM Time: 11:45 Bicarb 1 Amp Intravenous Given by Luke Fung RN [facility] 11:45 AM Paged community support associate operations officer [place] 11:46 AM pharmacy called per Aurora Ingram NP [place] 11:47 AM INTUBATED orally WITH # 7.5Tube Size [place] 11:47 AM ET TUBE PLACEMENT CONFIRMED BY =, AUSCULTATION [place] 11:47 AM ET tube measured 24 cm at lip line. [place] 11:47 AM Time: 11:47 Versed 2 mg Intravenous Given by Nickie Whittaker RN [place] 11:47 AM Time: 11:47 Fentanyl 50 mcg Intravenous Given by Nickie Whittaker RN [place] 11:48 AM Vitals capture stopped. 11:48 AM Time: 11:48 Juan 100 mg Intravenous Given by Micah Roth RN [place] 11:49 AM 5Fr Pigtail catheter inserted over the wire [facility] [place] 11:49 AM Catheter crossed the aortic valve and was selectively placed in the left ventricle. Pressures recorded on pullback for left heart catheterization. [place] 11:49 AM Bolus angiogram of left Ventricle complete: 8 ml/sec for a total of 24 mls [place] 11:49 AM Catheter removed [place] 11:49 AM CPR initiated 11:49 RASHI Roth RN [place] 11:50 AM Code procedures initiated 11:50 [facility] 11:50 AM ECG Rythm: PEA [place] 11:50 AM Time: 11:50 Epinephrine 1 mg Intravenous Given by Luke Fung RN [place] 11:51 AM Time: 11:51 Neosynephrine 100 mcg/min Intravenous Given by Nickie Whittaker RN Mayer pump [place] 11:51 AM Time: 11:51 Dopamine 15 mcg/kg/min Intravenous Given by Nickie Whittaker RN Mayer pump [place] 11:51 AM CPR continued 11:51 David Lazaro RT(R) [place] 11:52 AM Assiting respiration with ambu bag, with [id number] [place] 11:52 AM Perfusion in lab, Dr Gutierrez in lab for assistance with Impella placement [place] 11:52 AM Recorded Pressure: Ao, HR=82, Condition=Condition 1 (Aorta) Ao 117/81/93 11:53 AM pulse check [place] 11:53 AM ECG Rythm: Sinus Arrythmia [place] 11:54 AM An injection of 10 ml. of Isovue 370- 500ml was used for angiography of the descending aorta in the AP projection [place] 11:54 AM Preparing for impella placement right groin [place] 11:55 AM CPR initiated 11:55 Funmilayo Figueroa RT(R) dspellman 11:55 AM draw blood gases [place] 11:56 AM Vitals capture started with the following parameters, Patient=Adult, Interval=5 min, Initial Glkxpvxz=258 mmHg, Deflation Rate=5 mmHg, Cuff placed on Right Arm 11:57 AM Pulse check/ sinus rhythm dspellman 11:59 AM CPR initiated 11:58 Luke Fung RN [place] 11:59 AM Vitals capture stopped. 11:59 AM sheath exchanged, impella sheath inserted [place] 12:00 PM Time: 12:00 Epinephrine 1 mg Intravenous Given by Nickie Whittaker RN [place] 12:00 PM Time: 12:00 Bicarb 1 Amp Intravenous Given by Micah Roth RN [place] 12:01 PM CPR ended 12:01 [place] 12:01 PM Pulse/ rhythm check [place] 12:02 PM 5Fr Pigtail catheter inserted over the wire DN [place] 12:02 PM Recorded Pressure: Ao, CO=043, Condition=Condition 1 (Aorta) Ao 98/73/81 12:02 PM .018 Abiomed 260cm guide wire inserted through catheter. [place] 12:03 PM 5 Fr pigtail Catheter removed [place] 12:04 PM Recorded Pressure: Ao, HR=92, Condition=Condition 1 (Aorta) Ao 94/66/75 12:05 PM Impella Catheter inserted over .018 wire. [id number]. *ACC* catheter inserted 11 [place] 12:05 PM Time: 12:05 Heparin 5000 units Intravenous Given by Nickie Whittaker RN [place] 12:06 PM blood gas results: pH 7.22, pCO2 42.5, pO2 327, hCO3 17.8 [place] 12:06 PM Impella Pump started in auto. Janice from Perfusion, Birgit from Impella present in room [place] 12:08 PM Access obtained by percutaneous puncture. 6Fr 10cm Terumo [place] sheath placed in left Femoral artery. [id number] [place] 12:09 PM PCI Status Emergency [place] 12:09 PM PCI lesion in Mid RCA. Pre Stenosis: 99 Pre CHRISTINA Flow: 1: Slow Penetration without Perfusion [place] 12:10 PM 6Fr JR 4 [place] Bright-Tip guide catheter was used to cannulate the PCI vessel successfully. reused? No [place] 12:10 PM .014 Prowater 190cm guide wire across target lesion- successful. reused? No [place] 12:10 PM Inflation device was opened. [place] 12:11 PM Time: 12:11 versed 2 mg/hr Intravenous Given by Nickie Whittaker RN Mayer pump [place] 12:14 PM Time: 11:59 Patient comfortable and pain free: Yes [place] 12:15 PM Time: 12:14 Fentenyl 50 mcg/hr Intravenous Given by Nickie Whittaker RN Mayer pump [place] 12:15 PM 2.0 mm x 14 mm Emerge Monorail balloon across target lesion- successful. reused? No [place] 12:15 PM Balloon inflated @ 8 lyn for 20 seconds [place] 12:16 PM Balloon inflated @ 10 lyn for 15 seconds [place] 12:16 PM Balloon inflated @ 10 lyn for 20 seconds [place] 12:17 PM Reperfusion of the RCA [place] 12:18 PM Balloon inflated @ 8 lyn for 15 seconds proximal RCA [place] 12:19 PM Time: 12:19 Vasopressin 0.04 units/min Intravenous Given by Nickie Whittaker RN Mayer pump [place] 12:20 PM 2.25mm x 38mm Synergy drug-eluting stent across target lesion- successful Lot #[id number] [place] 12:22 PM Stent deployed @ 12 lyn for 30 seconds [place] 12:23 PM Stent delivery system removed intact. [place] 12:24 PM Blood gases pH 7.06, CO2 67, pO2 64.3, HCO3 19.2, O2 SAT 81% dspellman 12:24 PM 2.25mm x 32mm Synergy drug-eluting stent across target lesion- successful Lot #[id number] [place] 12:24 PM At 12:24 the ACT was 378 seconds. [place] 12:25 PM Stent deployed @ 12 lyn for 30 seconds [place] 12:26 PM Stent balloon reinflated @ 14 lyn for 30 seconds [place] 12:26 PM Stent delivery system removed intact. [place] 12:27 PM Time: 12:26 Bicarb 1 Amp Intravenous Given by Micah Roth RN [place] 12:27 PM 2.25mm x 32mm Synergy drug-eluting stent across target lesion- successful Lot #[id number] [place] 12:28 PM Time: 12:28 Versed 2 mg Intravenous Given by Micah Roth RN [place] 12:28 PM Stent deployed @ 18 lyn for 20 seconds [place] 12:29 PM Stent balloon reinflated @ 18 lyn for 10 seconds [place] 12:29 PM Stent delivery system removed intact. [place] 12:30 PM Recorded Pressure: Ao, EX=889, Condition=Condition 1 (Aorta) Ao 71/53/61 12:30 PM Time: 12:30 Nitroglycerin 200 mcg Intracoronary Given by Claudia Ocampo MD, [facility] [place] 12:33 PM 2.5mm x 12mm Synergy drug-eluting stent across target lesion- successful Lot #[id number] [place] 12:37 PM ACT drawn [place] 12:39 PM Stent deployed @ 12 lyn for 20 seconds [place] 12:39 PM Stent balloon reinflated @ 1/8 lyn for 15 seconds [place] 12:40 PM Stent delivery system removed intact. [place] 12:42 PM At 12:42 the ACT was >400 seconds. [place] 12:43 PM 2.75 mm x 20mm NC Emerge balloon across target lesion- successful. reused? No [place] 12:43 PM Repeat ACT drawn [place] 12:44 PM Time: 12:29 Patient comfortable and pain free: Yes [place] 12:44 PM Balloon inflated @ 20 lyn for 15 seconds [place] 12:45 PM Balloon inflated @ 20 lyn for 15 seconds [place] 12:45 PM Balloon inflated @ 20 lyn for 15 seconds [place] 12:45 PM Balloon inflated @ 20 lyn for 15 seconds [place] 12:46 PM Balloon inflated @ 20 lyn for 15 seconds [place] 12:46 PM Balloon inflated @ 20 lyn for 15 seconds [place] 12:46 PM At 12:46 the ACT was 270 seconds. [place] 12:47 PM Balloon inflated @ 20 lyn for 15 seconds [place] 12:47 PM Balloon inflated @ 20 lyn for 15 seconds [place] 12:48 PM Balloon inflated @ 20 lyn for 15 seconds [place] 12:49 PM Balloon catheter removed intact. [place] 12:49 PM Time: 12:49 Nitroglycerin 200 mcg Intracoronary Given by Claudia Ocampo MD, FAC [place] 12:50 PM Time: 12:49 Dopamine 10 mcg/kg/min Intravenous Given by Micah Roth RN Mayer pump [place] 12:50 PM Guide wire removed intact. [place] 12:50 PM Guide catheter removed intact. [place] 12:51 PM 6Fr XB LAD 3.5 [place] Bright-Tip guide catheter was used to cannulate the PCI vessel successfully. reused? No [place] 12:52 PM PCI lesion in Proximal LAD. Pre Stenosis: 99 Pre CHRISTINA Flow: 1: Slow Penetration without Perfusion [place] 12:52 PM Recorded Pressure: Ao, SO=153, Condition=Condition 1 (Aorta) Ao 78/57/66 12:53 PM .014 Prowater 190cm guide wire across target lesion- successful. reused? No [place] 12:58 PM Access obtained by percutaneous puncture. 7Fr 16cm Arrow Central Line 3 Lumen sheath placed in left Femoral vein. [id number] [place] 12:59 PM Time: 12:44 Patient comfortable and pain free: Yes [place] 12:59 PM Time: 12:59 Dopamine 5 mcg/kg/min Intravenous Given by Luke Fung RN Mayer pump [place] 01:00 PM Time: 13:00 Vasopressin 0.4 units/min Intravenous Given by Micah Roth RN Mayer pump dspell 01:00 PM Central line placed, flushed [place] 01:01 PM Time: 13:01 Versed 2 mg Intravenous Given by Micah Roth RN [place] 01:02 PM Time: 13:01 Fentanyl 50 mcg Intravenous Given by Micah Roth RN [place] 01:02 PM Time: 13:02 Fentanyl 75 mg/hr Intravenous Given by Micah Roth RN Mayer pump [place] 01:03 PM Time: 13:02 Versed 3 mg/hr Intravenous Given by Micah Roth RN Mayer pump [place] 01:03 PM Time: 13:03 Amiodarone 150 mg Bolus/10 min Intravenous Given by Luke Fung RN Mayer pump [place] 01:05 PM Time: 13:05 Versed 2 mg Intravenous Given by Micah Roth RN [place] 01:05 PM Time: 13:05 Fentanyl 50 mcg Intravenous Given by Micah Roth RN [place] 01:06 PM Defibrillated at 200 Joules joules [place] 01:06 PM ECG Rythm: Ventricular Tach-Sustained [place] 01:07 PM Blood Gases: pH 7.03, pO2 66, pCO2 81, HCO3 21, O2 SAT 80% dspellman 01:07 PM Recorded ECG: XD=091 Condition=Condition 1 01:07 PM Time: 13:07 Dopamine dc'd mg Given by Ira, Micah RN Mayer pump [place] 01:09 PM 1.5 mm x 20 mm Emerge Monorail balloon across target lesion- successful. reused? No [place] 01:09 PM Balloon inflated @ 10 lyn for 20 seconds [place] 01:10 PM Balloon inflated @ 10 lyn for 20 seconds [place] 01:11 PM Recorded ECG: VZ=523 Condition=Condition 1 01:11 PM Balloon inflated @ 10 yln for 20 seconds [place] 01:12 PM Balloon inflated @ 10 lyn for 20 seconds [place] 01:13 PM Balloon catheter removed intact. [place] 01:14 PM Time: 12:59 Patient comfortable and pain free: Yes [place] 01:15 PM Time: 13:14 Nitroglycerin 200 mcg Intracoronary Given by Claudia Ocampo MD, [facility] [place] 01:15 PM Vitals capture started with the following parameters, Patient=Adult, Interval=5 min, Initial Rzfppraz=318 mmHg, Deflation Rate=5 mmHg, Cuff placed on Right Arm 01:17 PM Vitals capture stopped. 01:18 PM Time: 13:17 Nitroglycerin 200 mcg Intracoronary Given by Claudia Ocampo MD, [facility] [place] 01:20 PM Time: 13:20 Amiodarone 33.3 ml/hr Intravenous Given by Micah Roth RN Mayer pump [place] 01:24 PM 1.5 x 20 mm balloon inserted over the wire to the Dist LAD [place] 01:24 PM Vitals capture started with the following parameters, Patient=Adult, Interval=5 min, Initial Apfxlujd=293 mmHg, Deflation Rate=5 mmHg, Cuff placed on Right Arm 01:25 PM Balloon inflated @ 14 lyn for 20 seconds [place] 01:26 PM Balloon inflated @ 14 lyn for 20 seconds [place] 01: PM BP Impella 82/61. BP low, refer to Impella notes and Respiratory notes for vital signs. [place] 01:26 PM Balloon inflated @ 14 lyn for 20 seconds [place] :27 PM Balloon inflated @ 14 lyn for 20 seconds [place] 01: PM Vitals capture stopped. 01:27 PM Balloon catheter removed intact. [place] 01:28 PM Time: 13:27 Nitroglycerin 200 mcg Intracoronary Given by Claudia Ocampo MD, [facility] [place] 01:29 PM Time: 13:14 Patient comfortable and pain free: Yes [place] 01:31 PM 2.25mm x 32mm Synergy drug-eluting stent across target lesion- successful Lot #[id number] [place] 01:31 PM Vitals capture started with the following parameters, Patient=Adult, Interval=5 min, Initial Stkidsyj=906 mmHg, Deflation Rate=5 mmHg, Cuff placed on Right Arm 01:32 PM Stent removed intact/undeployed [place] 01:32 PM 2.0 mm x 15 mm Emerge Monorail balloon across target lesion- successful. reused? No [place] 01:33 PM HR=98 bpm, NIBP=83/67 mmhg, SpO2=40 %, Resp=15 B/min 01:34 PM [ Start or Stop Vital ] 01:35 PM Balloon inflated @ 6 lyn for 10 seconds [place] 01:35 PM Balloon inflated @ 8 lyn for 18 seconds [place] 01:36 PM Balloon inflated @ 8 lyn for 10 seconds [place] 01:36 PM Balloon inflated @ 8 lyn for 11 seconds [place] 01:36 PM Balloon catheter removed intact. [place] 01:36 PM At 13:36 the ACT was 273 seconds. [place] 01:37 PM 2.25 x 32 mm Synergy drug eluting stent inserted over the wire to the proximal LAD [place] 01:38 PM Vitals capture stopped. 01:38 PM Stent removed intact. [place] 01:38 PM Vitals capture started with the following parameters, Patient=Adult, Interval=5 min, Initial Ifncyhaw=033 mmHg, Deflation Rate=5 mmHg, Cuff placed on Right Arm 01:39 PM 6Fr Guidezilla advanced [place] 01:39 PM 2.25 x 32 mm stent advanced to the LAD lesion [place] 01:41 PM Vitals capture stopped. 01:44 PM Time: 13:29 Patient comfortable and pain free: Yes [place] 01:45 PM Vitals capture started with the following parameters, Patient=Adult, Interval=5 min, Initial Cbvklnfb=760 mmHg, Deflation Rate=5 mmHg, Cuff placed on Right Arm 01:46 PM Stent deployed @ 11 lyn for 30 seconds [place] 01:47 PM Stent balloon reinflated @ 12 lyn for 15 seconds [place] 01:47 PM Time: 13:47 Versed 2 mg Intravenous Given by Micah Roth RN [place] 01:47 PM Time: 13:47 Fentanyl 50 mcg Intravenous Given by Micah Roth RN [place] 01:48 PM Vitals capture stopped. 01:48 PM BP 91/70 on Impella [place] 01:48 PM NIBP STAT measurement started. 01:49 PM Stent delivery system removed intact. [place] 01:49 PM ACT drawn [place] 01:50 PM At 13:50 the ACT was 223 seconds. [place] 01:50 PM Time: 13:50 Nitroglycerin 200 mcg Intracoronary Given by Claudia Ocampo MD, [facility] [place] 01:50 PM Vitals capture stopped. 01:51 PM NIBP STAT measurement started. 01:52 PM 2.25mm x 20mm Synergy drug-eluting stent across target lesion- successful Lot #[id number] [place] 01:54 PM Vitals capture stopped. 01:54 PM Time: 13:54 Heparin 2000 units Intravenous Given by Luke Fung RN [place] 01:55 PM Stent deployed @ 12 lyn for 30 seconds [place] 01:56 PM Stent balloon reinflated @ 18 lyn for 20 seconds [place] 01:57 PM Stent delivery system removed intact. [place] 01:58 PM 2.5 mm x 12mm NC Emerge balloon across target lesion- successful. reused? No [place] 01:58 PM AO pressure 81/70 [place] 01:58 PM Recorded Pressure: Ao, HR=98, Condition=Condition 1 (Aorta) Ao 86/81/84 01:59 PM Balloon inflated @ 20 lyn for 12 seconds [place] 01:59 PM Balloon inflated @ 20 lyn for 15 seconds [place] 01:59 PM Balloon inflated @ 20 lyn for 10 seconds [place] 02:00 PM Balloon inflated @ 20 lyn for 10 seconds [place] 02:00 PM Balloon catheter removed intact. [place] 02:01 PM Time: 14:00 Nitroglycerin 200 mcg Intracoronary Given by Claudia Ocampo MD, [facility] [place] 02:02 PM Balloon catheter removed intact. [place] 02:02 PM Guide catheter removed intact. [place] 02:03 PM Bolus angiogram of left Femoral complete: 4 ml/sec for a total of 7 mls cedwards 02:03 PM NIBP STAT measurement started. 02:04 PM Suturing central line left groin cedwards 02:06 PM Vitals capture stopped. 02:07 PM Impella placement adjusted under supervision of the Impella Rep cedwards 02:09 PM Blood gases drawn cedwards 02:12 PM Blood Gases: pH 7.05, pCO2 78, pO2 50,HCO3 22, O2 SAT 66% [email or web address] 02:13 PM Impella sheath peeled away, catheter secured. cedwards 02:16 PM ET tube placement verified with fluoro. cedwards 02:17 PM Ventilator settings Rate 20, TV 550, Peep10, FIO2 100 cedwards 02:20 PM Vitals capture started with the following parameters, Patient=Adult, Interval=5 min, Initial Winakczr=657 mmHg, Deflation Rate=5 mmHg, Cuff placed on Right Arm 02:20 PM Time: 14:19 0.9 w/ Sodium Bicarbonate 100 ml/hr Intravenous Given by Luke Fung RN Mayer pump cedwards 02:22 PM OM=186 bpm, NIBP=73/48 mmhg, SpO2=40.0 %, Resp=19 B/min 02:23 PM BP Impella 73/48 cedwards 02:23 PM NIBP STAT measurement started. 02:24 PM Access obtained by percutaneous puncture. 7Fr 11cm Cordis Vannesa sheath placed in right Femoral vein. [id number] cedwards 02:25 PM Stat Echo ordered cedwards 02:25 PM PH=969 bpm, DUDD=507/77 mmhg, SpO2=33.0 %, Resp=21 B/min 02:25 PM 7 F Fung [employer] [place] 'S' tip inserted through venous sheath cedwards 02:26 PM Pressure channel 1 zeroed. 02:26 PM ACT 293 cedwards 02:26 PM Pressure channel 1 zeroed. 02:26 PM Recorded Pressure: RA, YH=953, Condition=Condition 1 (Right Atrium) RA 1816/15 02:27 PM Recorded Pressure: RA, HR=063, Condition=Condition 1 (Right Atrium) RA 171615 02:28 PM Saturation: Site=IVC (Inferior Vena Cava) , Condition=Condition 1. Used in calculation. 02:30 PM .014 ChoICE PT Extra Support 182cm guide wire across target lesion- successful. reused? No cedwards 02:31 PM Recorded Pressure: RV, KI=782, Condition=Condition 1 (Right Ventricle) RV 14//13 02:32 PM Vitals capture stopped. 02:32 PM Recorded Pressure: MPA, LE=675, Condition=Condition 1 (Main Pulmonary Artery) MPA 44/28/36 02:33 PM Recorded Pressure: PCW, RO=193, Condition=Condition 1 (Pulmonary Capillary Wedge) PCW 39/34/31 02:33 PM Recorded Pressure: RV, CR=093, Condition=Condition 1 (Right Ventricle) RV 51 02:34 PM Recorded Pressure: RA, II=838, Condition=Condition 1 (Right Atrium) RA 02:34 PM Recorded Pressure: RA, HL=615, Condition=Condition 1 (Right Atrium) RA 02:36 PM Recorded Pressure: MPA, WU=611, Condition=Condition 1 (Main Pulmonary Artery) MPA 47/37 02:37 PM Thermo CO: CO=3.3 l/m, JG=346 bpm, Condition=Condition 1. Used in calculation. Equipment: Description and Size=SWAN 7FR, Type=Bath Probe, CC=0.578 Injectant: Temp=19.0 - 22.0 Celsius, Volume=10.0 ml 02:37 PM Thermo CO: CO=2.9 l/m, CL=457 bpm, Condition=Condition 1. Used in calculation. Equipment: Description and Size=SWAN 7FR, Type=Bath Probe, CC=0.578 Injectant: Temp=19.0 - 22.0 Celsius, Volume=10.0 ml 02:38 PM Thermo CO: CO=3.5 l/m, TF=397 bpm, Condition=Condition 1. Used in calculation. Equipment: Description and Size=SWAN 7FR, Type=Bath Probe, CC=0.578 Injectant: Temp=19.0 - 22.0 Celsius, Volume=10.0 ml 02:38 PM Thermo CO: CO=3.8 l/m, MS=939 bpm, Condition=Condition 1. Used in calculation. Equipment: Description and Size=SWAN 7FR, Type=Bath Probe, CC=0.578 Injectant: Temp=19.0 - 22.0 Celsius, Volume=10.0 ml 02:39 PM Thermo CO: CO=3.3 l/m, DB=544 bpm, Condition=Condition 1. Used in calculation. Equipment: Description and Size=SWAN 7FR, Type=Bath Probe, CC=0.578 Injectant: Temp=19.0 - 22.0 Celsius, Volume=10.0 ml 02:40 PM Saturation: Site=HRA (Right Atrium) , O2=34.1 %, Condition=Condition 1. Used in calculation. 02:42 PM Saturation: Site=IVC (Inferior Vena Cava) , O2=30.3 %, Hgb=14.5 gm/dl, Condition=Condition 1. Used in calculation. 02:42 PM Saturation: Site=FA (Femoral Artery) , O2=66 %, Hgb=14.5 gm/dl, Condition=Condition 1. Used in calculation. 02:45 PM Right heart hemodynamics, O2 saturations and Cardiac Outputs obtained. cedwards 02:46 PM Suturing 7 Fr Venous sheath with [place] catheter left in place in right groin. cedwards 02:48 PM Saturation: Site=PA (Pulmonary Artery) , O2=32.6 %, Hgb=14.5 gm/dl, Condition=Condition 1. Used in calculation. 02:48 PM Recorded Pressure: MPA, WF=582, Condition=Condition 1 (Main Pulmonary Artery) MPA 02:52 PM Suction 200cc bloody red emisis from ET tube. cedwards 02:55 PM Procedure completed at 14:55 08/09/2018 cedwards 02:55 PM Did you address CHRISTINA flow and Dominance? cedwards 02:56 PM Sign out completed: Radiation Dose 1785.06 mGy, 58472 cGy/cm2 Fluoro Time: 40.2 Isovue 370 - 200ml contrast 425 ml given by Claudia Ocampo MD, [facility]. Complications: None. 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 Cardiac Rehab Consult needed: NoConfirmed administered medications: Yes cedwards 02:56 PM Isovue 370 - 200ml,3 Bottle(s) used. cedwards 02:56 PM Sheath left in place to be pulled on floor/holding areaV+Pad cedwards 02:56 PM Estimated Blood Loss: less than 50cc cedwards 02:57 PM Post ECG Sinus Tachycardia cedwards 02:58 PM Post Blood Pressure 98/75 cedwards 02:59 PM 14:59 Post Pulses Bilateral Femoral 1+ cedwards 03:00 PM Site status No bleeding/hematoma - Rt Groin as reported by Funmilayo Figueroa RT at 14:59 cedwards 03:00 PM Site status No bleeding/hematoma - Lt Groin as reported by Funmilayo Figueroa RT at 15:00 cedwards 03:00 PM Opsite applied cedwards 03:01 PM Family placed in consult room. cedwards 03:01 PM Complications: None cedwards 03:03 PM Blood Gases: pH 7.14, pCO2 69.6, pO2 54.1, HCO3 24.1, O2 SAT 76.3% [email or web address] 03:10 PM Report given to Viet FRANCOIS Pt taken to ICU Room #3. 15:10 cedwards 03:10 PM [place] Catheter placed, dark bloody urine 400 cc. cedwards 03:13 PM Coronary Dominance: right cedwards 03:13 PM Lesion found in Proximal RCA. Pre Stenosis: 80 Pre CHRISTINA Flow: 1: Slow Penetration without Perfusion cedwards 03:13 PM Lesion found in Mid RCA. Pre Stenosis: 100 Pre CHRISTINA Flow: 0: No Flow/No perfusion cedwards 03:14 PM Lesion found in Proximal LAD. Pre Stenosis: 90 Pre CHRISTINA Flow: 1: Slow Penetration without Perfusion cedwards 03:14 PM Lesion found in Mid LAD. Pre Stenosis: 99 Pre CHRISTINA Flow: 1: Slow Penetration without Perfusion cedwards 03:14 PM Lesion found in Proximal Circumflex. Pre Stenosis: 100 Pre CHRISTINA Flow: 0: No Flow/No perfusion cedwards 03:14 PM Proximal Left Anterior Descending Coronary Artery with 90% stenosis. If graft is supplying this territory, 0 % stenosis. cedwards 03:15 PM Mid/Distal Left Anterior Descending Coronary Artery and diagonal branches with 99% stenosis. If graft is supplying this area, 0 % stenosis cedwards 03:15 PM Circumflex, Obtuse Marginal, Left Posterior Descending, and Left Posterolateral Coronary Arteries with 100 % stenosis. If graft is supplying this area, 0 % stenosis cedwards 03:30 PM [facility]: [facility] Complications Complication None None Hemodynamics Pressures Site Systolic/A Wave Diastolic/V Wave Mean AO 80 22 46 AO 117 81 93 AO 98 73 81 AO 94 66 75 AO 71 53 61 AO 78 57 66 AO 86 81 84 RA 18 16 15 RA 17 16 15 RV 14 12 13 MPA 44 28 36 PCW 39 34 31 RV 51 7 12 RA 16 15 13 RA 15 14 12 MPA 47 28 37 MPA 48 28 37 Oximetry Site Saturation IVC 30.3 IVC 15.2 RA 34.1 RA 34.1 FEM_ART 66 FEM_ART 66 PA 32.6 PA 32.6 Post Procedure Information Blood Pressure: 98/75 mmHg Rhythm: Sinus Tachycardia Post procedural instructions were not given Site Checks Time Location Status Staff Sheath In? Note 02:59 PM Rt Groin No bleeding/hematoma Funmilayo Figueroa RT 03:00 PM Lt Groin No bleeding/hematoma Funmilayo Figueroa RT Pulses Time Site Pre-Procedure Post-Procedure Note 2:59:00 PM Bilateral Femoral 1+ Updated by Rowena Schmitt, RT (R) on 08/09/2018 4:56:52 PM electronically signed on 08/10/2018 10:25:33 AM with status of Final
== END 2018-08-09 18:00 | disposition critical access hospital (66) | DRG 215 ==
LOC: EMEROOARM 10:58 → ICNU 11:20
PROVIDERS: ADMIT Internal Medicine Interventional Cardiology; ATTEND Internal Medicine Interventional Cardiology